=== PATIENT | male | born 1980 | race African-American/Black ===

== ENCOUNTER 2020-03-14 21:21 | Emergency (ER) | payer SELFPAY ==
--- NOTE | ~2020-03-14 | XR_ITS ---
EXAMINATION: XR chest 2V EXAM DATE: 03/14/2020 21:47 INDICATION: Mid chest tightness, shortness of breath. TECHNIQUE: Frontal and lateral projections of the chest obtained and reviewed. There are no prior ashley dies for comparison. FINDINGS: The lungs are clear. There are no pleural effusions. The cardiomediastinal silhouette is within normal limits. There is no pneumothorax suspected. The bones and soft tissues are unremarkab le. IMPRESSION: No acute cardiopulmonary findings. Reviewed, dictated and finalized at location A.
--- NOTE | ~2020-03-14 | CT_ITS ---
EXAMINATION: CTA chest abdomen pelvis EXAM DATE: 03/14/2020 23:05 INDICATION: Chest pain, fingers tingling. TECHNIQUE: Spiral CT of the chest, abdomen and pelvis was performed following intravenous injection o f 100 mL Omnipaque 350. Axial, coronal and sagittal images were reviewed. Coronal maximum intensity pixel images of chest reviewed. The dose-length product (DLP) for this examination was 1107.61 mGy- cm. The exposure was tailored according to patient size (auto mA exposure control), and iterative re construction (ASIR) was used as additional dose reduction technique. There is no prior study for tasneem lim. FINDINGS: No central pulmonary emboli. Normal aortic caliber, no dissection. CHEST: The lungs are clear. There are no pleural or pericardial effusions. Tracheobronchial tree is patent. There is no mediastinal, hilar or axillary lymphadenopathy. There is no pneumothorax. Heart normal in size. No evidence of coronary arterial calcification. ABDOMEN PELVIS: The liver, spleen, adrenal glands and pancreas are unremarkable. Gallbladder is unre markable. No biliary obstruction. Portal and splenic veins are patent. Kidneys enhance symmetrical ly. There is no hydronephrosis. The prostate is unremarkable. The bladder is unremarkable. There is no retroperitoneal or pelvic lymphadenopathy. The appendix is normal. The stomach and small bowel are unremarkable. There is expected amount of c olonic stool. No free intraperitoneal gas. The bones are unremarkable. IMPRESSION: 1. No acute chest, abdomen or pelvis findings. Reviewed, dictated and finalized at location A.
[2020-03-14 21:16] VITALS: BP 181/117; PULSE 102; RESP 16; TEMP 37.1; O2SAT 100
[2020-03-14 21:24] VITALS: PULSE 96
--- NOTE | 2020-03-14 21:26 | ED.CHESTPAIN ---
HPI - Chest Pain General Chief Complaint: Chest Pain Stated Complaint: chest pain History of Present Illness HPI narrative: Sudden onset of severe squeezing substernal chest pain while riding in the car shortly before arrival here. This was associated with SOB and tingling throughout his entire body. Started shortly after eating fried chicken. He has had one similar episode in the past. This was diagnosed as anxiety. Related Data Home Medications Medication Instructions Recorded Confirmed No Home Medications 03/14/20 Allergies Allergy/AdvReac Type Severity Reaction Status Date / Time No Known Allergies Allergy Verified 03/14/20 21:23 Review of Systems Review of Systems: All systems reviewed & are unremarkable except as noted in HPI and below Constitutional: Constitutional: Denies fever(s) Cardiovascular: Cardiovascular: Reports chest pain and Denies radiating jaw, neck or arm pain Respiratory: Respiratory: Reports dyspnea Gastrointestinal: Gastrointestinal: Denies abdominal pain Neurologic: Reports numbness Psychiatric: Psychiatric: Reports anxiety Exam Const: General: healthy appearing, no acute distress and alert Orientation/consciousness: patient oriented x3 HENMT: Head: normal to inspection Neck: Neck: normal visual inspection and no lymphadenopathy Chest: Chest palpation & inspection: no tenderness Resp: Effort & Inspection: normal respiratory effort Auscultation: clear to auscultation bilaterally, no rales, no rhonchi and no wheezes Cardio: Jugular venous distension: no JVD Rate: regular rate Rhythm: regular rhythm Heart sounds: no murmurs GI: Inspection: non-distended GI Palp: Yes Soft to palpation and No Tenderness to palpation present (GI) Other: Nontender Skin: General skin exam: normal color Neuro: General: patient oriented x3 and moves all extremities Speech: normal speech Extrem: General: no edema Psych: Appearance: well kempt Affect: normal affect Course Vital Signs Vital signs: Vital Signs Temperature 37.1 C 03/14/20 21:16 Pulse Rate 102 H 03/14/20 21:16 Respiratory Rate 16 03/14/20 21:16 Blood Pressure 181/117 H 03/14/20 21:16 Pulse Oximetry 100 03/14/20 21:16 Temperature 36.4 C 03/15/20 01:18 Pulse Rate 87 03/15/20 01:18 Respiratory Rate 16 03/15/20 01:18 Blood Pressure 140/85 03/15/20 01:18 Pulse Oximetry 98 03/15/20 01:18 MDM - Chest Pain Medical Records Data Attestation: I reviewed the patient's medical records. Lab Data Attestation: I reviewed the patient's lab results. Result diagrams: 03/14/20 21:32 03/14/20 21:32 Labs: Lab Results 03/14/20 03/14/20 03/14/20 Range/Units 21:32 21:32 21:32 WBC 8.7 (4.5-10.0) K/mm3 RBC 4.12 L (4.6-6.20) M/mm3 Hgb 13.2 L (14.0-18.0) g/dL Hct 38.9 L (42.0-52.0) % MCV 94.4 (80-100) fl MCH 32.0 (26-34) pg MCHC 33.9 (32-36) g/dl RDW 14.0 (11.5-14.5) % Plt Count 298 (150-375) k/mm3 MPV 9.4 (7.4-10.4) fl Immature Gran % (Auto) 0.1 (0-0.5) % Neut % (Auto) 53.8 (45.5-73.1) % Lymph % (Auto) 33.0 (18.3-44.2) % [place] % (Auto) 10.4 H (2.6-8.5) % Eos % (Auto) 2.1 (0-4.4) % Baso % (Auto) 0.6 (0.2-1.2) % Lymph # (Auto) 2.87 (0.9-3.2) K/mm3 [place] # (Auto) 0.9 H (0.1-0.6) K/mm3 Eos # (Auto) 0.2 (0-0.3) K/mm3 Baso # (Auto) 0.1 (0.0-0.1) K/mm3 Abs Immat Gran (auto) 0.01 (0.00-0.031) K/mm3 Absolute Neuts (auto) 4.7 (1.3-6.7) K/mm3 Absolute Nucleated RBC 0.0 (0.0-0.012) K/mm3 Nucleated RBC % 0.0 (0.0-0.2) % PT 12.3 (11.1-14.7) Seconds INR 0.9 APTT 24.8 (22.3-36.8) SECONDS Sodium 134 L (137-145) mmol/L Potassium 3.1 L (3.4-5.0) mmol/L Chloride 103 (98-107) mmol/L Carbon Dioxide 19 L (22-30) mmol/L Anion Gap 12 (8-16) mmol/L BUN 15 (9-20) mg/dL Creatinine 1.00 (0.7-1.3) mg/dL Estim Creat Clear
[2020-03-14] MEDS: PANTOPRAZOLE SODIUM IV 40 MG VIAL IV PUSH (21:36)
[2020-03-14 21:38] LABS: Basophils Absolute Auto 0.1 K/mm3 (0.0-0.1); Basophils Percent Auto 0.6 % (0.2-1.2); Eosinophils Absolute Auto 0.2 K/mm3 (0-0.3); Eosinophils Percent Auto 2.1 % (0-4.4); Hematocrit 38.9 % (42.0-52.0); Hemoglobin 13.2 g/dL (14.0-18.0); Immature Granulocyte Absolute 0.01 K/mm3 (0.00-0.031); Immature Granulocyte Percent A 0.1 % (0-0.5); Lymphocytes Absolute Auto 2.87 K/mm3 (0.9-3.2); Mean Corpuscular HGB Conc 33.9 g/dl (32-36); Mean Corpuscular Volume 94.4 fl (80-100); Mean Platelet Volume 9.4 fl (7.4-10.4); Monocytes Absolute Auto 0.9 K/mm3 (0.1-0.6); Monocytes Percent Auto 10.4 % (2.6-8.5); Neutrophils Absolute Auto 4.7 K/mm3 (1.3-6.7); Neutrophils Percent Auto 53.8 % (45.5-73.1); Platelet Count Result 298 k/mm3 (150-375); Red Blood Count 4.12 M/mm3 (4.6-6.20); White Blood Count 8.7 K/mm3 (4.5-10.0)
[2020-03-14 21:49] LABS: INR 0.9; Prothrombin Time 12.3 Seconds (11.1-14.7)
[2020-03-14 21:50] LABS: Alanine Aminotransferase 32 U/L (4-50); Albumin Level 4.4 g/dL (3.5-5.1); Alkaline Phosphatase 73 U/L (38-126); Anion Gap 12 mmol/L (8-16); Aspartate Amino Transferase 43 U/L (17-59); Bilirubin,Total 0.6 mg/dL (0.2-1.3); Blood Urea Nitrogen 15 mg/dL (9-20); Calcium 8.9 mg/dL (8.4-10.2); Carbon Dioxide 19 mmol/L (22-30); Chloride 103 mmol/L (98-107); Estimated CRCL calculation 104 ml/min; Estimated Glomerular Filt Rate > 60; Glucose 164 mg/dL (75-110); Lipase 180 U/L (23-300); Partial Thromboplastin Time 24.8 SECONDS (22.3-36.8); Potassium 3.1 mmol/L (3.4-5.0); Sodium 134 mmol/L (137-145)
--- NOTE | 2020-03-14 21:54 | ECG_ITS ---
Measurements Intervals [place] Rate: 97 P: 67 [place]: 122 QRS: 30 QRSD: 106 T: -17 QT: 345 QTc: 439 Interpretive Statements SINUS RHYTHM WITH SINUS ARRHYTHMIA T WAVE ABNORMALITY IN INFERIOR LEADS- CONSIDER ISCHEMIA BASELINE ARTIFACT- I, II, III, AVR, AVF ABNORMAL ECG Electronically Signed On 03-15-2020 7:13:04 CDT by Aung Ibarra D.O.
--- NOTE | 2020-03-14 21:54 | ECG_ITS ---
Measurements Intervals [place] Rate: 84 P: 57 MO: 156 QRS: 36 QRSD: 107 T: -31 QT: 367 QTc: 436 Interpretive Statements SINUS RHYTHM NONSPECIFIC T-WAVE ABNORMALITY- INF/LAT LEADS ABNORMAL ECG Electronically Signed On 03-15-2020 7:14:39 CDT by Aung Ibarra D.O.
--- NOTE | 2020-03-14 22:00 | PC.NURSE ---
Patient reports increasing chest tightness. EDP Fly notified, repeat EKG ordered.
[2020-03-14 22:02] LABS: Troponin I < 0.012 ng/mL (0.000-0.034)
[2020-03-14] MEDS: NITROGLYCERIN SL 0.4 MG TABLET SUBLINGUAL (22:15)
[2020-03-14 22:59] VITALS: BP 148/91; PULSE 93; RESP 14; O2SAT 100
[2020-03-15 00:03] VITALS: BP 145/85; PULSE 91; RESP 21; O2SAT 99
[2020-03-15 00:49] LABS: Troponin I < 0.012 ng/mL (0.000-0.034)
[2020-03-15 01:18] VITALS: BP 140/85; PULSE 87; RESP 16; TEMP 36.4; O2SAT 98
== END 2020-03-15 01:20 | disposition home or self-care (01) ==
PROVIDERS: Emergency Provider Emergency Medicine
DX: R07.2 Precordial pain (principal); I10 Essential (primary) hypertension; R94.31 Abnormal electrocardiogram [ECG] [EKG]
CPT/HCPCS: 36415; 71046; 71275; 74174; 80053; 83690; 84484; 85025; 85610; 85730; 93005; 96374; 99284; A9270; C9113; Q9967